=== PATIENT | male | born 1990 | race African-American/Black ===

== ENCOUNTER 2020-03-25 20:52 | Emergency (ER) | payer OTHER ==
[2020-03-25 21:04] VITALS: BP 148/97; PULSE 94; TEMP 97.8; BMI 29.8
[2020-03-25] MEDS ORDERED: KETOROLAC TROMETHAMINE 30 MG/1 ML VIAL IM ONE (21:50)
[2020-03-25] MEDS ORDERED: TETANUS AND DIPHTHERIA TOXOID 0.5 ML DISP.SYRIN IM ONE (21:51)
[2020-03-25] MEDS ORDERED: KETOROLAC TROMETHAMINE 30 MG/1 ML VIAL ONE (22:51)
[2020-03-25] MEDS ORDERED: DIPHTH,PERTUSS(ACELL),TET 0.5 ML DISP.SYRIN IM ONE (22:52)
[2020-03-25] MEDS ORDERED: AMOX TR/POT CLAV 875MG/125MG TABLETS (FP) PO ONE (23:15)
[2020-03-25] MEDS ORDERED: AMOX TR/POT CLAV 875MG/125MG TABLETS (FP) ONE (23:22)
== END 2020-03-26 10:53 | disposition home or self-care (01) ==
LOC: JERFT 20:52
PROC: 3E0233Z Introduction of Anti-inflammatory into Muscle, Percutaneous Approach (ICD-10-PCS; principal; 2020-03-25)
PROC: 3E0234Z Introduction of Serum, Toxoid and Vaccine into Muscle, Percutaneous Approach (ICD-10-PCS; 2020-03-25)
DX: S02.2XXA Fracture of nasal bones, initial encounter for closed fracture (principal)
CPT/HCPCS: 70450-TC; 70486-TC; 99285-25

== ENCOUNTER 2024-08-15 16:08 | Emergency (ER) | payer MEDICARE, OTHER ==
[2024-08-15 16:37] VITALS: BP 136/87; PULSE 64; RESP 18; TEMP 98.4; BMI 31.1
== END 2024-08-15 17:40 | disposition left against medical advice (07) ==
LOC: JER 16:08
DX: Z53.21 Procedure and treatment not carried out due to patient leaving prior to being seen by health care provider (principal)
CPT/HCPCS: 99281-25

== ENCOUNTER 2024-09-14 06:17 | Emergency (ER) | payer MEDICARE, OTHER ==
[2024-09-14 06:23] VITALS: RESP 20; BMI 31.8
[2024-09-14] MEDS ORDERED: KETOROLAC TROMETHAMINE 15 MG/ML VIAL ONE (07:34)
[2024-09-14] MEDS: SODIUM CHLORIDE 1,000 ML IV STA (07:57)
[2024-09-14] MEDS: KETOROLAC TROMETHAMINE 15 MG/ML VIAL IVPUSH ONE (07:57)
[2024-09-14 08:08] LABS: ABSOLUTE IMMATURE GRANULOCYTES 0.09 x10^3/uL (0.0-0.031); EOSINOPHILS # 0.51 x10^3/uL (0.04-0.54)
[2024-09-14 08:10] LABS: BASOPHILS # 0.07 x10^3/uL (0.01-0.08); HEMATOCRIT 49.7 % (40.1-51.0); HEMOGLOBIN 16.2 g/dL (13.7-17.5); MCHC 32.6 g/dl (32.3-36.5); MEAN CELL VOLUME 92.7 fl (79.0-92.2); MEAN PLT VOLUME 14.4 fl (9.4-12.4); MONOCYTE # 1.11 x10^3/uL (0.30-0.82); PLATELET COUNT 128 x10^3/uL (163-337); RDW 12.4 % (12.0-15.6)
[2024-09-14 08:29] LABS: POTASSIUM 4.5 mmol/L (3.5-5.1)
[2024-09-14 08:31] LABS: ALBUMIN 4.2 g/dl (3.4-5.0); BLOOD UREA NITROGEN 17.8 mg/dL (7-18)
[2024-09-14 08:33] LABS: PH,URINE 5.5 (5.0-8.0); URINE APPEARANCE CLEAR; URINE BILIRUBIN NEGATIVE (NEGATIVE); URINE COLOR YELLOW; URINE GLUCOSE (UA) NEGATIVE (NEGATIVE); URINE KETONE NEGATIVE (NEGATIVE); URINE LEUK ESTERASE NEGATIVE (NEGATIVE); URINE NITRITE NEGATIVE (NEGATIVE); URINE PROTEIN NEGATIVE (NEGATIVE); URINE UROBILINOGEN 0.2 mg/dL (0.2-1.0)
[2024-09-14 08:35] LABS: BILIRUBIN,TOTAL 0.3 mg/dL (0.2-1); CREATININE 1.1 mg/dL (0.55-1.3)
[2024-09-14 08:36] LABS: TOT PROT 7.5 g/dl (6.4-8.2)
[2024-09-14 10:26] VITALS: BP 138/88; PULSE 54; TEMP 98.3
== END 2024-09-14 10:59 | disposition home or self-care (01) ==
LOC: JER 06:17
PROC: 3E0333Z Introduction of Anti-inflammatory into Peripheral Vein, Percutaneous Approach (ICD-10-PCS; principal; 2024-09-14)
PROC: 3E0337Z Introduction of Electrolytic and Water Balance Substance into Peripheral Vein, Percutaneous Approach (ICD-10-PCS; 2024-09-14)
DX: R10.12 Left upper quadrant pain (principal); R10.32 Left lower quadrant pain; R68.83 Chills (without fever)
CPT/HCPCS: 36415; 74177-TC; 80053; 81003; 83690; 85025; 99285-25